=== PATIENT | female | born 1950 | race Caucasian/White ===

== ENCOUNTER → 2021-02-02 | Outpatient (CLI) | payer OTHER | LOC: HYPER 09:58 | PROVIDERS: ATTEND Emergency Medicine | DX: S71.002A Unspecified open wound, left hip, initial encounter (principal); S30.0XXA Contusion of lower back and pelvis, initial encounter; L98.492 Non-pressure chronic ulcer of skin of other sites with fat layer exposed; G30.9 Alzheimer's disease, unspecified; M79.81 Nontraumatic hematoma of soft tissue; F02.80 Dementia in other diseases classified elsewhere, unspecified severity, without behavioral disturbance, psychotic disturbance, mood disturbance, and anxiety; X58.XXXA Exposure to other specified factors, initial encounter; Y93.89 Activity, other specified; Y92.89 Other specified places as the place of occurrence of the external cause; Y99.8 Other external cause status ==